=== PATIENT | female | born 1985 | race African-American/Black ===

== ENCOUNTER 2017-10-20 10:32 | Emergency (ER) | payer MEDICAID ==
[~2017-10-20] VITALS: Ht 152.4 cm; Wt 73.6 kg
[2017-10-20] MEDS ORDERED: DiphenhydrAMINE HCL 25 MG CAPSULE PO ONE (12:15)
[2017-10-20] MEDS ORDERED: IBUPROFEN 600 MG TABLET PO ONE (12:15)
[2017-10-20 12:46] VITALS: BP 114/68
== END 2017-10-20 12:56 | disposition home or self-care (01) ==
LOC: EMS 10:32
DX: T78.1XXA Other adverse food reactions, not elsewhere classified, initial encounter (principal); K02.9 Dental caries, unspecified
CPT/HCPCS: 99283